=== PATIENT | female | born 1985 | race American Indian/Alaskan Native ===

== ENCOUNTER 2018-04-12 07:17 | Emergency (ER) | payer SELFPAY ==
[2018-04-12 09:04] LABS: Bilirubin,Urine NEG (Negative); Blood,Urine NEG (Negative); Color,Urine Yellow (Yellow); Protein,Urine <15 mg/dL mg/dL (Negative); Urobilinogen,Urine < 2.0 mg/dL (<2.0)
[2018-04-12 09:07] LABS: HCG Qualitative,Urine Negative (Negative)
[2018-04-12] MEDS ORDERED: MOTRIN PO ONE (09:28)
--- NOTE | 2018-04-12 09:30 | Emergency Department Report ---
Blank Doc - Documentation Documentation: Patient is a 33-year-old Female who presented with pelvic pain. Patient states that the pain is 8 out of 10 in severity and crampy in nature in the lower pelvis. Patient states she is approximately 1 week late with her period. Patient states pain feels as though her uterus is try to push out. For this physical exam patient has some suprapubic tenderness to palpation. Urinalysis shows that the patient does not have a UTI is not . Pelvic ultrasound be done and the patient be reassessed.
--- NOTE | 2018-04-12 10:21 | Emergency Department Report ---
ED Abdominal Pain HPI - General Chief Complaint: Abdominal Pain Stated Complaint: ABD PAIN Time Seen by Provider: 04/12/18 09:21 Source: patient Mode of arrival: Ambulatory Limitations: No Limitations - History of Present Illness Initial Comments: Ordering Physician: ROSALIA VERA MD Date of Service: 04/12/18 Patient is a 33-year-old Female who presented with pelvic pain. Patient states that the pain is 8 out of 10 in severity and crampy in nature in the lower pelvis. Patient states she is approximately 1 week late with her period. Patient states pain feels as though her uterus is try to push out. Denies any urinary burning, frequency or urgency. Denies any fever or chills. Denies any nausea or vomiting. Denies any back pain. She is also reporting some headache and her blood pressure is 144/102 to 9 and history of hypertension. Denies any visual disturbances. Denies any dizziness, chest pain. MD Complaint: abdominal pain Onset/Timin -: days(s) Location: suprapubic Radiation: other (radiates to the bilateral legs) Migration to: no migration Severity: severe Severity scale (0 -10): 9 Quality: cramping Consistency: intermittent Improves With: nothing Worsens With: nothing Context: other (unknown) Associated Symptoms: nausea. denies: vomiting, diarrhea, fever, chills, constipation, dysuria, hematemesis, hematochezia, melena, hematuria, anorexia, syncope Treatments Prior to Arrival: other (none) - Related Data LMP Date: 02/06/18 Previous Rx's Medication Instructions Recorded Last Taken Type Naproxen 500 mg PO Q12H PRN #12 tablet 04/12/18 Unknown Rx Allergies Allergy/AdvReac Type Severity Reaction Status Date / Time No Known Allergies Allergy Verified 04/12/18 08:22 ED Review of Systems ROS: Stated complaint: ABD PAIN Other details as noted in HPI Constitutional: denies: chills, fever ENT: ear pain Respiratory: denies: cough, shortness of breath, SOB with exertion, SOB at rest , stridor, wheezing Cardiovascular: denies: chest pain, palpitations, edema, syncope, paroxysmal nocturnal dyspnea Gastrointestinal: denies: abdominal pain, nausea, diarrhea Genitourinary: abnormal menses. denies: urgency, dysuria, frequency, hematuria , discharge, dyspareunia Musculoskeletal: denies: back pain, joint swelling, arthralgia, myalgia Skin: denies: rash, lesions Neurological: headache. denies: numbness, paresthesias, confusion, abnormal gait, vertigo Psychiatric: denies: depression ED Past Medical Hx - Past Medical History Previous Medical History?: No - Surgical History Past Surgical History?: No - Family History Family history: hypertension - Social History Smoking Status: Never Smoker Substance Use Type: None - Medications Home Medications: Home Medications Medication Instructions Recorded Confirmed Last Taken Type Naproxen 500 mg PO Q12H PRN #12 tablet 04/12/18 Unknown Rx ED Physical Exam - General Limitations: No Limitations General appearance: alert, in no apparent distress - Head Head exam: Present: atraumatic, normocephalic, normal inspection - Eye Eye exam: Present: normal appearance, PERRL, EOMI Pupils: Present: normal accommodation - ENT ENT exam: Present: normal exam, normal orophraynx, mucous membranes moist - Neck Neck exam: Present: normal inspection, full ROM. Absent: tenderness, lymphadenopathy - Respiratory Respiratory exam: Present: normal lung sounds bilaterally. Absent: respiratory distress, chest wall tenderness - Cardiovascular Cardiovascular Exam: Present: regular rate, normal rhythm, normal heart sounds. Absent: systolic murmur, diastolic murmur - GI/Abdominal GI/Abdominal exam: Present: soft, tenderness (suprapubic area), normal bowel sounds. Absent: distended, guarding, rebound, rigid, organomegaly, mass, bruit , pulsatile mass, hernia - Extremities Exam Extremities exam: Present: normal inspection, full ROM, normal capillary refill , other (No cce. + 2 pulses in all extremities, no neurovascular compromise). Absent: tenderness, pedal edema, joint swelling, calf tenderness - Back Exam Back exam: Present: normal inspection, full ROM, other (ambulates without difficulties). Absent: tenderness, CVA tenderness (R), CVA tenderness (L), muscle spasm, paraspinal tenderness, vertebral tenderness, rash noted - Neurological Exam Neurological exam: Present: alert, oriented X3, normal gait, reflexes normal, other (no focal neurological deficit). Absent: motor sensory deficit - Psychiatric Psychiatric exam: Present: normal affect, normal mood - Skin Skin exam: Present: warm, dry, intact, normal color. Absent: rash ED Course Vital Signs 04/12/18 04/12/18 08:09 09:32 Temperature 98.4 F Pulse Rate 57 L Respiratory 20 18 Rate Blood Pressure 144/102 O2 Sat by Pulse 100 Oximetry - Reevaluation(s) Reevaluation #1: 04/12/18 10:23 Patient given ibuprofen 800 mg emergency room. Urinalysis and test is negative. Reevaluation #2: 04/12/18 13:15 Pain is better per patient and she is not having any headache at present. Pelvic pain is down to 2 out of 10. Blood pressure is better ED Medical Decision Making - Lab Data Lab Results 04/12/18 Range/Units 08:27 Urine Color Yellow (Yellow) Urine Turbidity Clear (Clear) Urine pH 5.0 (5.0-7.0) Ur Specific [place] 1.013 (1.003-1.030) Urine Protein <15 mg/dl (Negative) mg/dL Urine Glucose (UA) Neg (Negative) mg/dL Urine Ketones Neg (Negative) mg/dL Urine Blood Neg (Negative) Urine Nitrite Neg (Negative) Urine Bilirubin Neg (Negative) Urine Urobilinogen < 2.0 (<2.0) mg/dL Ur Leukocyte Esterase Neg (Negative) Urine WBC (Auto) 2.0 (0.0-6.0) /HPF Urine RBC (Auto) 5.0 (0.0-6.0) /HPF U Epithel Cells (Auto) 3.0 (0-13.0) /HPF Urine HCG, Qual Negative (Negative) - Radiology Data Radiology results: report reviewed Patient had transabdominal and transvaginal ultrasound which was dictated by radiologist and report reviewed by myself. Please see details of report below Patient: CAYDEN MAGANA MR#: [id number] : 1985 Acct:[id number] Age/Sex: 33 / F ADM Date: 04/12/18 Loc: ED Attending Dr: Ordering Physician: ROSALIA VERA MD Date of Service: 04/12/18 Procedure(s): US pelvic complete Accession Number(s): [id number] cc: ROSALIA VERA MD ULTRASOUND PELVIC COMPLETE ULTRASOUND TRANSVAGINAL HISTORY: Pelvic pain. COMPARISON: None. TECHNIQUE: Transabdominal and transvaginal ultrasound with color doppler interrogation. FINDINGS: Uterus: The uterus is anteverted. The uterus measures 12.6 x 5.6 x 6.5 cm. No obvious uterine fibroids are identified. An 8mm nabothian cyst is noted in the cervix. Endometrium: 8.3 mm. No mass or fluid collection. Right ovary: 3.5 x 2.2 x 2.0 cm. No focal abnormality. Left ovary: 2.6 x 1.5 x 1.4 cm. No focal abnormality. No pelvic fluid or mass is identified. Normal color doppler interrogation. IMPRESSION: The uterus is mildly enlarged but no obvious uterine fibroids are identified. The endometrium and ovaries are unremarkable. 8mm nabothian cysts in the cervix. Transcribed By: TTR Dictated By: AYUSH SZYMANSKI JR, MD Electronically Authenticated By: AYUSH SZYMANSKI JR, MD Signed Date/Time: 04/12/181218 DD/ 16 TD/TT: 04/12/181218 - Medical Decision Making This is a 33-year-old female here report that she is having pelvic pain for one day to feels like she is given . She said the pain is radiating down her leg with some nausea. Denies any other symptoms. She also reports some headache and her last menstrual cycle was 02/06/2018. She reports that she is having headache and her blood pressure is 144/102 without any history of high blood pressure. Patient also reported that she was having some nausea. A shot was screened by Dr. Vera in order . She had ultrasound transabdominal and transvaginal which shows that her uterus is mildly enlarged but no obvious uterine fibroids are identified. The endometrium and ovaries are unremarkable. The uterus is mildly enlarged but no obvious uterine fibroids are identified. The endometrium and ovaries are unremarkable. 8mm nabothian cysts in the cervix.8mm nabothian cyst in the cervix. This was dictated by radiologist and report reviewed by myself. Urinalysis is normal and a test is negative. I went over report of ultrasound and also urinalysis and test the patient and I told her that she needs to follow up with [facility] at [facility] since she does not have any insurance for follow-up. She voiced understanding. A/P Pelvic pain-patient received Motrin 800 mg by mouth and emergency room which relieved her pain. She will be sent home on naproxen Enlarged uterus-referrals to [facility]. Ultrasound shows no fibroids or mass. Ovaries are normal 8mm nabothian cysts cervix Nausea along-resolved Patient discharged home in stable condition with prescription for naproxen. Vital signs are stable she is afebrile and blood pressure is better. Nausea is relieved that her pain is better. She is to follow-up with [facility] in 2 days and she voiced understanding. - Differential Diagnosis uterine mass vs fibroids, ovarian mass vs cyst, torsion, , UTI Critical care attestation.: If time is entered above; I have spent that time in minutes in the direct care of this critically ill patient, excluding procedure time. ED Disposition Clinical Impression: Uterine enlargement, Nabothian cyst, Pelvic pain, Nausea alone, Abnormal menses Disposition: TO HOME OR SELFCARE Is pt being admited?: No Does the pt Need Aspirin: No Condition: Stable Instructions: Abdominal Pain (ED), Dysmenorrhea (ED) Additional Instructions: Please follow up at [facility] at [facility] regarding cysts and cervix. abnormal menses and pelvic pain. Increase fluid intake Take naproxen for pain Prescriptions: Naproxen 500 mg PO Q12H PRN #12 tablet PRN Reason: pelvic pain Referrals: PRIMARY CAREMD [Primary Care Provider] - 04/14/18 [facility] [Outside] - 04/14/18 Forms: Work/School Release Form(ED)
--- NOTE | 2018-04-12 12:25 | Ultrasound Report ---
ULTRASOUND PELVIC COMPLETE ULTRASOUND TRANSVAGINAL HISTORY: Pelvic pain. COMPARISON: None. TECHNIQUE: Transabdominal and transvaginal ultrasound with color doppler interrogation. FINDINGS: Uterus: The uterus is anteverted. The uterus measures 12.6 x 5.6 x 6.5 cm. No obvious uterine fibroids are identified. An 8mm nabothian cyst is noted in the cervix. Endometrium: 8.3 mm. No mass or fluid collection. Right ovary: 3.5 x 2.2 x 2.0 cm. No focal abnormality. Left ovary: 2.6 x 1.5 x 1.4 cm. No focal abnormality. No pelvic fluid or mass is identified. Normal color doppler interrogation. IMPRESSION: The uterus is mildly enlarged but no obvious uterine fibroids are identified. The endometrium and ovaries are unremarkable. 8mm nabothian cysts in the cervix.
[2018-04-12 13:20] VITALS: BP 140/84
== END 2018-04-12 13:43 | disposition home or self-care (01) ==
LOC: ED 07:17
DX: N85.2 Hypertrophy of uterus (principal)
CPT/HCPCS: 76830; 76856; 81001; 81025; 99284